=== PATIENT | male | born 1970 | race Caucasian/White ===

== ENCOUNTER 2022-02-23 11:06 | Outpatient (CLI) | payer OTHER, SELFPAY ==
--- NOTE | ~2022-02-23 | XR_ITS ---
XR hand LT min 3V DATE: 02/23/2022 11:21 INDICATION: Joint pain for 3 months TECHNIQUE: 3 views COMPARISON: None FINDINGS: No fracture or dislocation, periosteal reaction or bone destruction, erosive change or reji drocalcinosis. Joint spaces are well preserved. IMPRESSION: Negative Reviewed, dictated and finalized at location A. IMPRESSION: Negative
== END 2022-02-23 11:07 | disposition home or self-care (01) ==
LOC: CHSIMG 11:07
PROVIDERS: PCP Family Medicine; Visit Provider Family Medicine
DX: M79.642 Pain in left hand (principal)
CPT/HCPCS: 73130

== ENCOUNTER 2022-09-11 16:47 | Outpatient (RCR) | payer OTHER, SELFPAY ==
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
== END 2022-09-11 17:24 | disposition home or self-care (01) ==
LOC: CHSPT 16:47
PROVIDERS: Visit Provider Family Medicine
DX: S39.92XA Unspecified injury of lower back, initial encounter (principal)
CPT/HCPCS: 97161

== ENCOUNTER 2022-11-30 07:15 | Outpatient (CLI) | payer OTHER, SELFPAY ==
--- NOTE | ~2022-11-30 | US_ITS ---
US retroperitoneal comp 11/30/2022 07:41 Procedure: Realtime transabdominal ultrasound of the kidneys and bladder. Indication: Continuous urine leakage. Comparison: No prior studies for comparison. Findings: Renal echotexture is normal bilaterally without hydronephrosis, contour deforming mass or r enal calculus. The right kidney measures 11.8 cm and left kidney measures 11.5 cm. Bladder within no rmal limits. Prevoid volume is 1 13 cc. Postvoid volume is 12 cc. Impression: 1: Unremarkable renal ultrasound. No stones, masses or hydronephrosis. 2: Small post void residual. Reviewed, dictated and finalized at location B. Impression: 1: Unremarkable renal ultrasound. No stones, masses or hydronephrosis. 2: Small post void residual.
== END 2022-11-30 07:16 | disposition home or self-care (01) ==
LOC: CHSIMG 07:17
PROVIDERS: PCP Family Medicine; Visit Provider Family Medicine
DX: N39.45 Continuous leakage (principal)
CPT/HCPCS: 76770

== ENCOUNTER 2023-02-12 08:08 | Outpatient (CLI) | payer OTHER, SELFPAY ==
[2023-02-12 08:27] LABS: Basophils Absolute Auto 0.04 K/mm3 (0.00-0.10); Basophils Percent Auto 0.6 % (0.0-1.0); Eosinophils Absolute Auto 0.36 K/mm3 (0.02-0.50); Eosinophils Percent Auto 5.3 % (1.0-6.0); Hematocrit 52.4 % (40.0-54.0); Hemoglobin 17.6 g/dL (14.0-18.0); Immature Granulocyte Absolute 0.02 K/mm3 (0.00-0.00); Immature Granulocyte Percent A 0.3 % (0.0-0.0); Lymphocytes Absolute Auto 2.09 K/mm3 (1.10-4.50); Lymphocytes Percent Auto 30.7 % (18.0-42.0); Mean Corpuscular HGB Conc 33.6 g/dL (32.0-36.0); Mean Corpuscular Hemoglobin 30.6 pg (27.0-31.0); Mean Platelet Volume 9.2 fl (8.7-11.0); Monocytes Absolute Auto 0.52 K/mm3 (0.10-0.90); Monocytes Percent Auto 7.6 % (2.0-11.0); Neutrophils Absolute Auto 3.8 K/mm3 (1.7-7.2); Neutrophils Percent Auto 55.5 % (50.0-70.0); Platelet Count Result 223 K/mm3 (150-420); Red Blood Count 5.76 M/mm3 (4.70-6.10); Red Cell Distribution Width 13.3 % (11.6-14.4); White Blood Count 6.8 K/mm3 (4.8-10.8)
[2023-02-12 09:46] LABS: Alanine Aminotransferase 63 U/L (16-63); Albumin Level 4.4 g/dL (3.4-5.0); Alkaline Phosphatase 162 U/L (46-116); Anion Gap 10 mmol/L (8-16); Aspartate Amino Transferase 26 U/L (15-37); Bilirubin,Total 0.9 mg/dL (0.00-1.00); Blood Urea Nitrogen 13 mg/dL (7-18); Calcium 9.3 mg/dL (8.5-10.1); Carbon Dioxide 27 mmol/L (21-32); Chloride 104 mmol/L (98-108); Estimated Glomerular Filt Rate > 60; Free T3 2.55 pg/mL (2.18-3.98); Glucose 158 mg/dL (70-99); Osmolality Calculated 295 mOsm/kg (285-295); Potassium 4.6 mmol/L (3.5-5.1); Sodium 141 mmol/L (136-145); Total Protein 7.5 g/dL (6.4-8.2)
[2023-02-14 14:42] LABS: Lithium <0.15 mmol/L (0.60-1.20)
== END 2023-02-12 08:09 | disposition home or self-care (01) ==
LOC: CHSLAB 08:12
PROVIDERS: PCP Family Medicine
DX: Z79.899 Other long term (current) drug therapy (principal)
CPT/HCPCS: 36415; 80053; 80178; 84439; 84443; 84481; 85025

== ENCOUNTER 2023-07-03 07:38 | Outpatient (CLI) | payer MEDICARE, MEDICAID, SELFPAY ==
--- NOTE | ~2023-07-03 | CT_ITS ---
EXAMINATION: CT IAC/mastoids BI wo/w con DATE: 07/03/2023 08:46 INDICATION: Decreased hearing in right ear. TECHNIQUE: Computed tomography (CT) of the temporal bones was performed without and with 75 mL Omnipa que 350 intravenous contrast. Automated exposure control and iterative reconstruction technique were employed. The dose-length product was 760.13 mGy-cm. COMPARISON: None FINDINGS: RIGHT TEMPORAL BONE: The internal auditory canal, cochlea, vestibule, semicircular canals, vestibular aqueduct, carotid ca nal, and jugular bulb are normal. There is an effusion of the tympanic cavity and mastoid air cells i ncluding opacification of Prussak space. Scutum is normal. The ossicles are normal. The external yaima tory canal is normal. LEFT TEMPORAL BONE: The internal auditory canal, cochlea, vestibule, vestibular aqueduct, carotid canal, jugular bulb, fa cial nerve course, ossicles, Prussak space, scutum, tympanic membrane, external auditory canal is, an d mastoid air cells are normal. IMPRESSION: 1. Right otomastoid effusion. Reviewed, dictated and finalized at location A. SERVICER
[2023-07-03 08:06] LABS: Estimated Glomerular Filt Rate > 60
== END 2023-07-03 07:39 | disposition home or self-care (01) ==
LOC: CHSIMG 07:40
PROVIDERS: PCP Family Medicine
DX: H91.91 Unspecified hearing loss, right ear (principal); H83.91 Unspecified disease of right inner ear
CPT/HCPCS: 70482; Q9967

== ENCOUNTER 2023-10-23 09:16 | Outpatient (CLI) | payer MEDICARE, SELFPAY ==
[2023-10-23 09:46] LABS: Basophils Absolute Auto 0.07 K/mm3 (0.00-0.10); Basophils Percent Auto 0.9 % (0.0-1.0); Eosinophils Absolute Auto 0.42 K/mm3 (0.02-0.50); Eosinophils Percent Auto 5.2 % (1.0-6.0); Hematocrit 54.9 % (40.0-54.0); Hemoglobin 18.4 g/dL (14.0-18.0); Immature Granulocyte Absolute 0.01 K/mm3 (0.00-0.00); Immature Granulocyte Percent A 0.1 % (0.0-0.0); Lymphocytes Absolute Auto 2.45 K/mm3 (1.10-4.50); Lymphocytes Percent Auto 30.4 % (18.0-42.0); Mean Corpuscular HGB Conc 33.5 g/dL (32.0-36.0); Mean Corpuscular Hemoglobin 29.7 pg (27.0-31.0); Mean Corpuscular Volume 88.5 fL (78.0-102.0); Mean Platelet Volume 9.3 fl (8.7-11.0); Monocytes Percent Auto 7.5 % (2.0-11.0); Neutrophils Absolute Auto 4.5 K/mm3 (1.7-7.2); Neutrophils Percent Auto 55.9 % (50.0-70.0); Platelet Count Result 252 K/mm3 (150-420); Red Cell Distribution Width 13.1 % (11.6-14.4); White Blood Count 8.1 K/mm3 (4.8-10.8)
[2023-10-23 10:10] LABS: Hemoglobin A1C 7.6 % (<5.7)
[2023-10-23 10:48] LABS: Alanine Aminotransferase 61 U/L (16-63); Albumin Level 4.5 g/dL (3.4-5.0); Alkaline Phosphatase 166 U/L (46-116); Anion Gap 12 mmol/L (8-16); Aspartate Amino Transferase 33 U/L (15-37); Bilirubin,Total 0.9 mg/dL (0.00-1.00); Blood Urea Nitrogen 12 mg/dL (7-18); Calcium 9.4 mg/dL (8.5-10.1); Carbon Dioxide 26 mmol/L (21-32); Chloride 99 mmol/L (98-108); Cholesterol 222 mg/dL (0-200); Estimated Glomerular Filt Rate > 60; Glucose 146 mg/dL (70-99); HDL Direct 42 mg/dL (40-60); LDL Cholesterol Calculated 132 mg/dL (<130); Osmolality Calculated 286 mOsm/kg (285-295); Potassium 4.5 mmol/L (3.5-5.1); Sodium 137 mmol/L (136-145); Total Protein 7.7 g/dL (6.4-8.2); Triglycerides 240 mg/dL (0-150)
== END 2023-10-23 09:17 | disposition home or self-care (01) ==
LOC: CHSLAB 09:20
PROVIDERS: PCP Family Medicine
DX: F31.12 Bipolar disorder, current episode manic without psychotic features, moderate (principal); Z79.899 Other long term (current) drug therapy
CPT/HCPCS: 36415; 80053; 80061; 83036; 85025

== ENCOUNTER 2024-10-20 07:53 | Outpatient (CLI) | payer MEDICARE, SELFPAY ==
[2024-10-20 08:07] LABS: Basophils Absolute Auto 0.07 K/mm3 (0.00-0.10); Basophils Percent Auto 0.9 % (0.0-1.0); Eosinophils Absolute Auto 0.38 K/mm3 (0.02-0.50); Eosinophils Percent Auto 4.7 % (1.0-6.0); Hematocrit 53.5 % (40.0-54.0); Hemoglobin 17.8 g/dL (14.0-18.0); Immature Granulocyte Absolute 0.02 K/mm3 (0.00-0.00); Immature Granulocyte Percent A 0.2 % (0.0-0.0); Lymphocytes Absolute Auto 2.69 K/mm3 (1.10-4.50); Mean Corpuscular HGB Conc 33.3 g/dL (32-36); Mean Corpuscular Hemoglobin 30.1 pg (27.0-31.0); Mean Corpuscular Volume 90.4 fL (78.0-102.0); Mean Platelet Volume 9.2 fl (8.7-11.0); Monocytes Absolute Auto 0.56 K/mm3 (0.10-0.90); Monocytes Percent Auto 6.9 % (2.0-11.0); Neutrophils Absolute Auto 4.44 K/mm3 (1.70-7.20); Neutrophils Percent Auto 54.3 % (50.0-70.0); Platelet Count Result 236 K/mm3 (150-420); Red Blood Count 5.92 M/mm3 (4.70-6.10); White Blood Count 8.2 K/mm3 (4.8-10.8)
[2024-10-20 08:20] LABS: Hemoglobin A1C 7.6 % (<5.7)
[2024-10-20 09:26] LABS: Alanine Aminotransferase 50 U/L (16-63); Albumin Level 4.4 g/dL (3.4-5.0); Alkaline Phosphatase 183 U/L (46-116); Anion Gap 13 mmol/L (4-12); Aspartate Amino Transferase 21 U/L (15-37); Bilirubin,Total 0.9 mg/dL (0.00-1.00); Blood Urea Nitrogen 11 mg/dL (7-18); Calcium 9.5 mg/dL (8.5-10.1); Carbon Dioxide 26 mmol/L (21-32); Chloride 104 mmol/L (98-108); Cholesterol 189 mg/dL (0-200); Estimated Glomerular Filt Rate > 60; Glucose 161 mg/dL (70-99); HDL Direct 39 mg/dL (40-60); LDL Cholesterol Calculated 111 mg/dL (<130); Osmolality Calculated 298 mOsm/kg (285-295); Potassium 4.3 mmol/L (3.5-5.1); Sodium 143 mmol/L (136-145); Total Protein 7.6 g/dL (6.4-8.2); Triglycerides 194 mg/dL (0-150)
== END 2024-10-20 07:54 | disposition home or self-care (01) ==
LOC: CHSLAB 07:57
PROVIDERS: PCP Family Medicine
DX: F31.2 Bipolar disorder, current episode manic severe with psychotic features (principal); Z79.899 Other long term (current) drug therapy
CPT/HCPCS: 36415; 80053; 80061; 83036; 85025